=== PATIENT | female | born 1960 | race Caucasian/White ===

== ENCOUNTER 2023-12-06 22:22 | Emergency (ER) | payer OTHER, SELFPAY ==
[2023-12-06 22:22] VITALS: BP 108/64
--- NOTE | 2023-12-06 23:57 | ED.GENMED ---
History of Present Illness
General
Chief Complaint: Anxiety
Source: patient
Exam Limitations: none
Time Seen by Provider: 12/06/23 23:37
Nursing documentation reviewed up to this point in time: agreed with
Travel History
Have you had any contact with someone who has COVID-19?: No
Do you have any symptoms of coronavirus? Fever > 100 degrees, chills, cough, shortness of breath, sore throat, loss of taste or smell, muscle aches, or headache?: No
History of Present Illness
History of Present Illness:
61-year-old female history of restless leg and anxiety presents with insomnia for 2 weeks after having some adjustments to her restless leg meds had restless leg since she was age 30 so gabapentin and other med, doses were adjusted recently started
on the patch, subsequently developed severe insomnia could not control movement of her legs, changed to Lyrica, which she is unclear if she started, who recently traveled to [place] did not enjoy the trip due to her symptoms, just got off the plane
apparently, has some Klonopin did not really work,
Past History
Past History
ED Past Medical History: Psychiatric and Other (Restless leg)
Social History
Tobacco: Non-smoker
Alcohol: None
Drug: None
Living: with family
Review of Systems
Review of Systems
All Other Systems: Not applicable
Constitutional: Reports sleep disturbance
EENT: Reports no symptoms
Respiratory: Reports no symptoms
ABD/GI: Reports no symptoms
Musculoskeletal: Reports muscle stiffness
Psychiatric: Reports anxiety
Phy Exam
Physical Exam
Physical Exam:
Physical Exam
General: Anxious female, pacing in room
Neck: No jaw
Heart: s1/s2 regular rate and rhythm, no murmur. equal radial pulses.
Lungs: no acute respiratory distress.
Neuro: alert and oriented. no focal neurological deficits no rigidity
Skin: no rash
Psychiatric: Anxious cooperative
Extremities: no edema. no calf tenderness.
Course
Orders/Labs/Results
Orders:
Orders
12/06/23 23:57
Diazepam [Valium] 5 mg PO NOW STA
Vital Signs
Initial and Last Documented VS:
Initial Vital Signs
Temp Pulse Resp BP Pulse Ox
98.3 F 110 22 108/64 98
12/06/23 22:22 12/06/23 22:22 12/06/23 22:22 12/06/23 22:22 12/06/23 22:22
Last Documented Vital Signs
Temp Pulse Resp BP Pulse Ox
98.3 F 110 22 108/64 98
12/06/23 22:22 12/06/23 22:22 12/06/23 22:22 12/06/23 22:22 12/06/23 22:22
MDM/Problems Addressed
Differential Diagnosis Includes:
Medication side effect primary anxiety
MDM/Problems Addressed:
Insomnia
Chronic conditions affecting care: Psychiatric illness
Acute Exacerbation and/or Progression of Chronic Illness: Psychiatric illness
*Pulse Oximetry
Patient hypoxic: no
*Critical Care Note
Total Time (30-74mins, 75-104mins- exclusive of procedures): Not Applicable
Update Note
Update Note:
12 midnight, up-to-date reviewed including the pathophysiology typical meds, will try to get her symptoms somewhat manageable this evening, very complicated case she has had restless leg for 30 years, she followed a sleep medicine specialist at
[facility]
1:25 PM patient appears improved, she did sleep for about 10 minutes she is requesting to be admitted here overnight, I see no indication for admission for insomnia, I was stephanie with her that I believe she needs to follow-up with her specialist, she
states she has been calling her specialist every day her meds have been adjusted told her I thought this was even more reason for her to follow-up with her specialists
ED Attending Note
-
Portions of this chart may have been created with voice recognition software.� Occasional wrong word or��sound alike� substitutions may have occurred due to the inherent limitations of voice recognition software.
Discharge Plan
Departure
Patient Disposition: Home (Routine Discharge)
Date of Disposition: 12/07/23
Time of Disposition: 00:15
Patient with high blood pressure during this ER visit?: No
Condition: Good
Discharge Problem:
Insomnia
Instructions: Insomnia (DC)
Prescriptions:
New
diazepam [Valium] 5 mg tablet
5 mg PO TID PRN (Reason: anxiety) Qty: 10 0RF
Referrals:
Prema Sanchez MD [Family Provider] -
Activity Restrictions/Additional Instructions:
Call your restless leg specialist in the morning to discuss your symptoms and arrange follow-up care
You can use Valium up to 3 times a day to help alleviate your symptoms
Do not mix Valium with your other anxiety medications
Interventions
Interventions:
*Risk Screen - Suicide Last Done: 12/06/23 22:22
*General Assessment Last Done: 12/07/23 00:18
*Neglect/Abuse Screening Last Done: 12/06/23 22:22
ED- Fall Risk Assessment Last Done: 12/07/23 00:19
*ED COVID-19 Vaccine History Last Done: 12/07/23 00:18
ED- Neurological Assessment Last Done: 12/07/23 00:19
ED-Psychological Assessment Last Done: 12/07/23 00:19
ED-Suicide Risk Assessment Last Done: 12/07/23 00:19
[2023-12-07 00:18] VITALS: BMI 23.3
[2023-12-07] MEDS: VALIUM 5 MG PO (00:27)
== END 2023-12-07 01:30 | disposition home or self-care (01) ==
LOC: EMR 22:22
PROVIDERS: EMERGENCY PHYSICIAN Emergency Medicine; FAMILY PHYSICIAN Family Medicine
DX: G47.00 Insomnia, unspecified (principal); G25.81 Restless legs syndrome
CPT/HCPCS: 99283